=== PATIENT | male | born 1980 | race Caucasian/White ===

== ENCOUNTER 2018-03-27 23:12 | Emergency (ER) | payer SELFPAY, MEDICAID | END 2018-03-28 02:13 | disposition left against medical advice (07) | LOC: FTE 23:12 | DX: Z53.21 Procedure and treatment not carried out due to patient leaving prior to being seen by health care provider (principal) ==

== ENCOUNTER 2019-02-23 22:24 | Emergency (ER) | payer SELFPAY | END 2019-02-23 23:51 | disposition left against medical advice (07) | LOC: FTE 22:24 | DX: Z53.21 Procedure and treatment not carried out due to patient leaving prior to being seen by health care provider (principal) ==